=== PATIENT | male | born 1980 | race Two or more races ===

== ENCOUNTER 2018-09-14 22:21 | Emergency (ER) | payer SELFPAY ==
[~2018-09-14] VITALS: Ht 157.5 cm; Wt 56.7 kg
[2018-09-14 22:52] VITALS: BP 135/79
[2018-09-15] MEDS ORDERED: IBUPROFEN 800 MG TAB PO ONE (01:00)
[2018-09-15] MEDS ORDERED: ACETAMINOPHEN 500 MG TAB PO ONE (01:00)
== END 2018-09-15 01:23 | disposition home or self-care (01) ==
LOC: ER 22:27
DX: M62.830 Muscle spasm of back (principal); Z88.1 Allergy status to other antibiotic agents; V43.52XA Car driver injured in collision with other type car in traffic accident, initial encounter; Y93.89 Activity, other specified; Y99.8 Other external cause status; Y92.410 Unspecified street and highway as the place of occurrence of the external cause
CPT/HCPCS: 72125; 72131